=== PATIENT | female | born 1940 | race Asian ===

== ENCOUNTER 2023-11-16 18:05 | Emergency (ER) | payer OTHER ==
[~2023-11-16] VITALS: Ht 165.1 cm; Wt 63.5 kg
[2023-11-16 18:15] VITALS: BP_SYST 148; PULSE 74; RESP 18; TEMP 98.2; O2SAT 97
[2023-11-16 19:31] LABS: ANION GAP 8 (5-15); CALCIUM 8.8 mg/dL (8.4-11.0); CARBON DIOXIDE 27 mmol/L (23-29); CHLORIDE 103 mmol/L (98-107); CREATININE 0.88 mg/dL (0.55-1.30); GLUCOSE 98 mg/dL (74-106); POTASSIUM 3.1 mmol/L (3.5-5.1); SODIUM SERUM 138 mmol/L (136-145); UREA NITROGEN, BLOOD 16 mg/dL (8-21)
[2023-11-16 19:45] LABS: ALANINE AMINOTRANSFERASE 36 U/L (12-78); ALBUMIN 3.6 g/dL (3.4-4.8); ASPARTATE AMINOTRANSFERASE 26 U/L (10-37); BILIRUBIN,DIRECT 0.2 mg/dL (0.0-0.3); LIPASE 41 U/L (16-77); TOTAL BILIRUBIN 0.9 mg/dL (0.0-1.0); TOTAL PROTEIN, SERUM 6.7 g/dL (6.4-8.3)
[2023-11-16 19:50] LABS: BASOPHILS % (AUTO) 0.8 % (0.0-2.0); HEMATOCRIT 34.7 % (36-48); HEMOGLOBIN 11.8 g/dL (12.0-16.0); LYMPHOCYTES % (AUTO) 24.9 % (20.5-51.5); MEAN CORPUSCULAR HEMOGLOBIN 32 pg (27-31); MEAN CORPUSCULAR HGB CONC 34 % (32-36); MEAN CORPUSCULAR VOLUME 94 fL (79.0-98.0); MONOCYTES # (AUTO) 0.5 K/uL (0.0-1.0); MONOCYTES % (AUTO) 12.1 % (1.7-9.3); NEUTROPHILS # (AUTO) 2.4 K/uL (1.8-7.7); NEUTROPHILS % (AUTO) 61.2 % (40.0-70.0); PLATELET COUNT (AUTO) 151 K/uL (130-430); RED CELL DISTRIBUTION WIDTH 13.1 % (9.0-15.0); WHITE BLOOD COUNT (AUTO) 3.9 K/uL (4.8-10.8)
[2023-11-16 20:03] LABS: INFLUENZA TYPE A Negative (NEGATIVE); INFLUENZA TYPE B NEGATIVE (NEGATIVE)
[2023-11-16] MEDS: MAG-AL HYDROX/SIMETH 30 ML UDC PO ONE (20:23)
[2023-11-16] MEDS: LIDOCAINE VISCOUS 2%, 15 ML UDC MM ONE (20:23)
[2023-11-16] MEDS ORDERED: AZITHROMYCIN 500 MG/VIAL (ZITHROMAX) IV ONE (21:29)
[2023-11-16] MEDS: cefTRIAXone 1 GM IVPB PREMIX 50 ML IV ONE (21:32)
[2023-11-16] MEDS: POTASSIUM CHLORIDE 20 MEQ/PKT PACKET PO ONE (21:33)
[2023-11-16] MEDS: LORazepam 2 MG/ML VIAL IVP ONE (21:33)
[2023-11-16] MEDS ORDERED: SUCR1TAB2 PO (21:43)
[2023-11-16] MEDS ORDERED: ZIT250 PO (21:43)
[2023-11-16] MEDS ORDERED: AMOX-423 PO (21:43)
[2023-11-16] MEDS: AZITHROMYCIN 500 MG in NS 250 ML IV ONE (22:14)
[2023-11-16 23:17] VITALS: BP_SYST 127; PULSE 73; RESP 20; TEMP 98; O2SAT 95
== END 2023-11-16 23:18 | disposition home or self-care (01) ==
LOC: SED 18:05
DX: J18.1 Lobar pneumonia, unspecified organism (principal); K29.70 Gastritis, unspecified, without bleeding; R05.9 Cough, unspecified; R09.89 Other specified symptoms and signs involving the circulatory and respiratory systems; K21.9 Gastro-esophageal reflux disease without esophagitis; I10 Essential (primary) hypertension; Z79.899 Other long term (current) drug therapy; Z20.822 Contact with and (suspected) exposure to COVID-19
CPT/HCPCS: 99285; 96365; 74175; 71045; 96367; 96375; 87426; 80076; 80048; 83880; 83690; 85025; 87040; 84484; 36415; 93005; 83605; 87804 ×2; J0456; J0696; J2060; J2001